=== PATIENT | male | born 1995 | race Caucasian/White ===

== ENCOUNTER 2018-03-28 23:27 | Emergency (ER) | payer OTHER, SELFPAY ==
[2018-03-28 23:28] VITALS: BP 143/81; PULSE 81; RESP 16; TEMP 36.6; O2SAT 100; BMI 23.6
--- NOTE | 2018-03-28 23:47 | CT_ITS ---
STUDY: CT BRAIN WITHOUT CONTRAST REASON FOR EXAM: Male, 22 years old. Fell down steps, laceration posterior, no LOC. RADIATION DOSAGE (If Supplied By Facility): CTDIvol = ( 44.99 ) mGy, DLP = ( 846.73 ) mGycm TECHNIQUE: Transaxial CT imaging of the brain was performed without administration of intravenous contrast material. Individualized dose optimization techniques were used for this CT. COMPARISON: None. FINDINGS: Normal soft tissue structures. Normal calvarium. Normal size ventricles and extra-axial spaces for the patient's age. Normal white matter tracts of the cerebral hemispheres. Normal basal ganglia and thalami. Normal brainstem. Normal cerebellum. There is no intracranial hemorrhage. There are no findings of an acute ischemic infarction. Normal visualized paranasal sinuses. The bilateral mastoid air cells are clear. CT/Brain/Head without Contrast IMPRESSION: Normal unenhanced CT scan of the brain. Electronically Signed: Leeann Chavez MD at 0:10 EST , Service support ,
[2018-03-29] MEDS: Diphth,Pertuss(Acell),Tet Vac 0.5 ML Vial IM (00:11)
[2018-03-29] MEDS: BACITRACIN 15 GM Tube 1 APPLIC TOPICAL (00:35)
--- NOTE | 2018-03-29 00:35 | ED.DCSUM_ITS ---
- ER Visit Summary Date of Service: 03/29/18 Chief Complaint: Head injury History of Present Illness: The patient is a 22 M who presents with a head injury. He slipped on what she was going down the steps. He fell backwards hitting his head on the steps and slid down about 10 steps. He does not believe there is loss of consciousness although states the events are blurry. He is not frankly amnestic. He denies headache or vomiting. He denies neck pain. He complains of some mild right thigh pain where he hit his leg but has been able to ambulate without difficulty. Physical Examination: Afebrile vitals are normal There is a 5 cm occipital scalp laceration with no active bleeding Pupils are equally round reactive to light, extraocular motion intact No cervical spinal tenderness Heart regular rate and rhythm Lungs are clear Abdomen soft Active full range of motion x4 extremities extremities nontender GCS of 15 with no focal or lateralizing neurological deficits Test Results: CT the head shows no acute process Emergency Department Course and Treatment: Laceration was anesthetized with lidocaine with epinephrine. Good anesthesia was achieved. Wound was irrigated with sterile saline and closed with 7 chinedu. Patient instructed on local wound care. He understands to return for new or worsening symptoms and was instructed on signs and symptoms to monitor for both in regards to his laceration and head injury. Patient discharged in good condition. Treatment Plan: [] Disposition: Discharge Impression: Closed head injury Scalp laceration Laceration repair This note was generated with [employer] dictation software. It may contain incorrect words, spelling, and punctuation that were not noted in review of the chart prior to signing ED Disposition - Plan for ED Patient: Chief Complaint: Head Injury Referrals: [facility] Doctor,Out of [Primary Care Provider] -
--- NOTE | 2018-03-29 00:35 | ED.DEP ---
ED Disposition - Plan for ED Patient: Chief Complaint: Head Injury Instructions: ED Head Injury Closed, ED Laceration Scalp Stitch Or Stap Referrals: [facility] Doctor,Out of [Primary Care Provider] -
[2018-03-29 00:42] VITALS: BP 130/74; PULSE 84; RESP 16; O2SAT 98
--- OUTSIDE RECORDS SUMMARY | 2018-05-31 05:49 | XMS RPT_ITS ---
:1995 Author Organization [facility] Care Team Providers Name Role Phone Yury Clements Attending Unavailable ALONA HANKS Primary Care Unavailable PROBLEMS PROBLEMS No Problem Records FoundPROCEDURES PROCEDURES No Procedure Records FoundRESULTS RESULTS EMERGENCY DEPARTMENT Observed: 03/29/2018 Status: F Source: RAYLE SUMMARY 12:35 AM [facility] REPOS[facility]ORY [facility] Medical Records Department [address] [place] [address] Emergency Department Summary 03/29/18 0033 MR#: [id number] Acct: [id number] Name: SHAWNEE PHILIP Rep #: [id number] : 1995 22 From: Yury Clements MD PCP: OUT OF TOWN DOCTOR Status: REG ER - ER Visit Summary Date of Service: 03/29/18 Chief Complaint: Head injury History of Present Illness: The patient is a 22 M who presents with a head injury. He slipped on what she was going down the steps. He fell backwards hitting his head on the steps and slid down about 10 steps. He does not believe there is loss of consciousness although states the events are blurry. He is not frankly amnestic. He denies headache or vomiting. He denies neck pain. He complains of some mild right thigh pain where he hit his leg but has been able to ambulate without difficulty. Physical Examination: Afebrile vitals are normal There is a 5 cm occipital scalp laceration with no active bleeding Pupils are equally round reactive to light, extraocular motion intact No cervical spinal tenderness Heart regular rate and rhythm Lungs are clear Abdomen soft Active full range of motion x4 extremities extremities nontender GCS of 15 with no focal or lateralizing neurological deficits Test Results: CT the head shows no acute process Emergency Department Course and Treatment: Laceration was anesthetized with lidocaine with epinephrine. Good anesthesia was achieved. Wound was irrigated with sterile saline and closed with 7 chinedu. Patient instructed on local wound care. He understands to return for new or worsening symptoms and was instructed on signs and symptoms to monitor for both in regards to his laceration and head injury. Patient discharged in good condition. Treatment Plan: [] Disposition: Discharge Impression: Closed head injury Scalp laceration Laceration repair This note was generated with [employer] dictation software. It may contain incorrect words, spelling, and punctuation that were not noted in review of the chart prior to signing ED Disposition - Plan for ED Patient: Chief Complaint: Head Injury Referrals: [facility] Chris,Out of [Primary Care Provider] - What to do if you have Problems For any increased pain, shortness of breath, bleeding, nausea or vomiting, chest pain, or any unexpected problems, contact your Primary Care Provider. Call [facility] ([phone]) or report to the closest Emergency Room. Call 911 if necessary. 03/29/1834 <Electronically signed by Yury Clements MD> Date Yury Clements MD Cosigner Signature (If Indicated): Date CC: OUT OF TOWN DOCTOR DISCHARGE INSTRUCTION Observed: 03/29/2018 Status: F Source: JAYJAY 12:35 AM [facility] Medical Records Department [address] [place] [address] Discharge Instruction 03/29/1834 MR#: [id number] Acct: [id number] Name: TAMERASHAWNEE Doug Rep #: [id number] : 1995 22 From: Yury Clements MD PCP: [facility] Status: REG ER ED Disposition - Plan for ED Patient: Chief Complaint: Head Injury Instructions: ED Head Injury Closed, ED Laceration Scalp Stitch Or Stap Referrals: [facility] Chris,Out of [Primary Care Provider] - What to do if you have Problems For any increased pain, shortness of breath, bleeding, nausea or vomiting, chest pain, or any unexpected problems, contact your Primary Care Provider. Call [facility] ([phone]) or report to the closest Emergency Room. Call 911 if necessary. 03/29/18 0035 <Electronically signed by Yury Clements MD> Date Yury Clements MD Cosigner Signature (If Indicated): Date CC: OUT OF TOWN DOCTOR BRAIN/HEAD WITHOUT Observed: 03/28/2018 Status: F Source: RAYLE CONTRAST 11:48 PM [facility] Imaging Services [address] [place] [address] Brain/Head without Contrast MR#: [id number] Acct: [id number] Name: SHAWNEE PHILIP Rep #: [id number] : 1995 M 22 From: Leeann Chavez MD PCP: NOT, DEFINED Status: PRE ER Study: Brain/Head without Contrast Date of Exam: 03/28/18 Exam# [id number] Ordering Dr: Yury Clements MD STUDY: CT BRAIN WITHOUT CONTRAST REASON FOR EXAM: Male, 22 years old. Fell down steps, laceration posterior, no LOC. RADIATION DOSAGE (If Supplied By Facility): CTDIvol = ( 44.99 ) mGy, DLP = ( 846.73 ) mGycm TECHNIQUE: Transaxial CT imaging of the brain was performed without administration of intravenous contrast material. Individualized dose optimization techniques were used for this CT. COMPARISON: None. FINDINGS: Normal soft tissue structures. Normal calvarium. Normal size ventricles and extra-axial spaces for the patient's age. Normal white matter tracts of the cerebral hemispheres. Normal basal ganglia and thalami. Normal brainstem. Normal cerebellum. There is no intracranial hemorrhage. There are no findings of an acute ischemic infarction. Normal visualized paranasal sinuses. The bilateral mastoid air cells are clear. CT/Brain/Head without Contrast IMPRESSION: Normal unenhanced CT scan of the brain. Electronically Signed: Leeann Chavez MD at 0:10 EST , Service support , CC: DEFINED NOT; Yury Clements MD Flanger: Signed ALLERGIES ALLERGIES DATE TYPE / CODE NAME / CODE REACTION SEVERITY SOURCE 03/28/2018 Drug No Known Unknown [facility] Allergy/4160 Allergies/F00 Hospital 16215(SNOMED [id number](RXNOR Repository CT) M) ENCOUNTERS ENCOUNTERS ADMIT/DISCHARGE ACCOUNT ADMITTING ENCOUNTER LOCATION SOURCE NUMBER CLASS 03/28/2018/01/22/201 [id number] Emergency [place] [facility] ing:ED Repository PAYERS PAYERS ENCOUNTER GUARANTOR PAYER SUBSCRIBER SOURCE 03/28/2018 SHAWNEE SHERMAN HALLDOB: Jayjay [id number] Insurance:Joon [id number] [place]: [place], [place] [id number] Repository [address]Fyh: 615) Date:[phone] ( [id number], [place] [phone]: 03/28/2018 Secondary NOT GIVENUNK Jayjay Insurance:SELF PAY [facility] Number: Effective Repository Date:2018-03-28
== END 2018-03-29 00:44 | disposition home or self-care (01) ==
PROVIDERS: Emergency Provider Emergency Medicine
DX: S01.01XA Laceration without foreign body of scalp, initial encounter (principal); W10.9XXA Fall (on) (from) unspecified stairs and steps, initial encounter; Y93.9 Activity, unspecified; Y92.9 Unspecified place or not applicable; Y99.9 Unspecified external cause status; K21.9 Gastro-esophageal reflux disease without esophagitis
CPT/HCPCS: 12002; 70450; 90471; 90715; 99284